=== PATIENT | female | born 1940 | race Caucasian/White ===

== ENCOUNTER 2020-03-23 04:23 | Day surgery (SDC) | payer OTHER ==
[2020-03-21 14:09] VITALS: BMI 30.8
[2020-03-23 09:18] VITALS: TEMP 97.7
[2020-03-23 09:37] VITALS: PULSE 73
[2020-03-23 09:55] VITALS: BP 130/81
== END 2020-03-23 10:18 | disposition home or self-care (01) ==
LOC: EDBD → JASU-ENDO 04:23
PROVIDERS: ATTEND Internal Medicine Gastroenterology
PROC: 0DB78ZX Excision of Stomach, Pylorus, Via Natural or Artificial Opening Endoscopic, Diagnostic (ICD-10-PCS; principal; 2020-03-23 09:00)
DX: R13.19 Other dysphagia (principal); K29.50 Unspecified chronic gastritis without bleeding; K44.9 Diaphragmatic hernia without obstruction or gangrene; I85.00 Esophageal varices without bleeding
CPT/HCPCS: 88305-TC; 88342-TC

== ENCOUNTER 2021-03-09 08:13 | Day surgery (SDC) | payer OTHER ==
[2021-03-09] MEDS ORDERED: FERRIC CARBOXYMALTOSE 750 MG in SODIUM CHLORIDE 250 ML IVPB ONE (08:41)
[2021-03-09 15:40] VITALS: BP 130/77; PULSE 71; TEMP 97.8
== END 2021-03-09 12:30 | disposition home or self-care (01) ==
LOC: JONCNONCHE 08:13
PROVIDERS: ATTEND Internal Medicine Hematology & Oncology
PROC: 3E033GC Introduction of Other Therapeutic Substance into Peripheral Vein, Percutaneous Approach (ICD-10-PCS; principal; 2021-03-09)
DX: D50.9 Iron deficiency anemia, unspecified (principal)
CPT/HCPCS: 96365; J1439

== ENCOUNTER 2021-03-16 07:34 | Day surgery (SDC) | payer OTHER ==
[2021-03-16] MEDS ORDERED: FERRIC CARBOXYMALTOSE 750 MG in SODIUM CHLORIDE 250 ML IVPB ONE (09:30)
[2021-03-16 16:32] VITALS: BP 125/71; PULSE 66; TEMP 97.6
== END 2021-03-16 10:00 | disposition home or self-care (01) ==
LOC: JONCNONCHE 07:34
PROVIDERS: ATTEND Internal Medicine Hematology & Oncology
PROC: 3E033GC Introduction of Other Therapeutic Substance into Peripheral Vein, Percutaneous Approach (ICD-10-PCS; principal; 2021-03-16)
DX: D50.9 Iron deficiency anemia, unspecified (principal)
CPT/HCPCS: 96365; J1439

== ENCOUNTER 2021-10-16 04:52 | Day surgery (SDC) | payer OTHER ==
[2021-10-15 08:22] VITALS: BMI 32.4
[2021-10-16 12:27] VITALS: RESP 18
[2021-10-16 13:16] VITALS: BP 139/72; PULSE 59; TEMP 97.3
== END 2021-10-16 13:12 | disposition home or self-care (01) ==
LOC: JASU-ENDO 04:52
PROVIDERS: ATTEND Internal Medicine Gastroenterology
PROC: 0DJ08ZZ Inspection of Upper Intestinal Tract, Via Natural or Artificial Opening Endoscopic (ICD-10-PCS; principal; 2021-10-16 11:00)
DX: I85.00 Esophageal varices without bleeding (principal); K31.9 Disease of stomach and duodenum, unspecified; K44.9 Diaphragmatic hernia without obstruction or gangrene

== ENCOUNTER 2021-11-20 04:52 | Day surgery (SDC) | payer OTHER ==
[2021-11-16 12:03] VITALS: BMI 32.4
[2021-11-20 11:19] VITALS: TEMP 97.5
[2021-11-20 12:19] VITALS: BP 122/67; PULSE 69; RESP 16
== END 2021-11-20 12:06 | disposition home or self-care (01) ==
LOC: JASU-ENDO 04:52
PROVIDERS: ATTEND Internal Medicine Gastroenterology
PROC: 0DJD8ZZ Inspection of Lower Intestinal Tract, Via Natural or Artificial Opening Endoscopic (ICD-10-PCS; principal; 2021-11-20 10:00)
DX: Z12.11 Encounter for screening for malignant neoplasm of colon (principal); K64.8 Other hemorrhoids; K62.89 Other specified diseases of anus and rectum

== ENCOUNTER → 2022-12-26 | Day surgery (SDC) | payer OTHER | END | disposition home or self-care (01) | LOC: FMAMMOTONE 12:15 | PROVIDERS: ATTEND Family Medicine | PROC: 0HBU3ZX Excision of Left Breast, Percutaneous Approach, Diagnostic (ICD-10-PCS; principal; 2022-12-26) | DX: D24.2 Benign neoplasm of left breast (principal); N64.89 Other specified disorders of breast; R92.1 Mammographic calcification found on diagnostic imaging of breast | CPT/HCPCS: 19081; 76098-TC-FY; 87899; 88305-TC; A4648 ==